=== PATIENT | female | born 1970 | race Caucasian/White ===

== ENCOUNTER 2016-10-01 11:35 | Emergency (ER) | payer OTHER ==
--- NOTE | ~2016-10-01 | CR63 ---
[facility]. [facility] A Service of [facility] & [facility] RADIOLOGY TEXT RESULTS PATIENT: MARIA D DE LA ROSA LOCATION: SED : 74 UNIT #: [id number] AGE: [address]: oJhn Alba DO SEX: F ORDER DR: [id number] [place] [id number] E MR#: [id number] #: [id number] NAME: MARIA D DE LA ROSA : 1970 SEX: F STUDY DATE/TIME: 10/01/2016 11:42 UNIT: SED ROOM: STUDY DESCRIPTION: CR Chest 2 View Attending Physician: John Alba Ordering Physician: Staff Doctor Not On Primary Care Physician: No Primary Care Physician MEDICAL IMAGING REPORT This report is preliminary unless electronic signature is present. EXAM 2 views chest HISTORY Cough, fevers, sore throat for 3 days, flu-like symptoms, short of breath. COMMENT 2 views of the chest reviewed. Comparison study 09/09/2015. The heart size is normal. No pleural effusion. No acute-appearing parenchymal infiltrate or acute congestive failure. IMPRESSION No active disease. Dictated by... Soo Yeung M.D. THIS IS AN ELECTRONICALLY VERIFIED REPORT Soo eYung M.D. at 10/02/2016 6:20 AM AJAY/alisia TD: 10/02/2016 01:43 JOB #: [id number] MEDICAL IMAGING REPORT
[~2016-10-01 11:35] MED LIST: ALBUTEROL17 GM INH; AMOXICILLIN PO; AUGMENTIN PO; AUGMENTIN875 MG PO; BACITRACIN30 GM TOP; BENZONATATE PO; DARVOCET-N 1001 TA1 PO; IBUPROFEN PO; MEDROL4 MG/DOSE- PO; MOBIC PO; NO MEDICATIONS; PREDNISONE PO; PROMETHAZINE HC25 MG PO; PROMETHAZINE-D240 ML PO; SKELAXIN PO; SOMA PO; TYLOX1 CAP 5/50 DOB; ZOLOFT PO
[2016-10-01 12:07] LABS: INFLUENZA A POS (NEG); INFLUENZA B NEG (NEG)
== END 2016-10-01 12:42 | disposition home or self-care (01) ==
LOC: SED 11:35
PROVIDERS: Emergency Medicine
DX: J10.1 Influenza due to other identified influenza virus with other respiratory manifestations (principal); Z88.5 Allergy status to narcotic agent; Z88.8 Allergy status to other drugs, medicaments and biological substances
CPT/HCPCS: 71020; 87651; 87804; 94640; 99283